=== PATIENT | male | born 1995 | race Caucasian/White ===

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

== ENCOUNTER 2018-11-22 02:21 | Emergency (ER) | payer SELFPAY ==
[~2018-11-22] VITALS: Ht 167.6 cm; Wt 115.7 kg
[2018-11-22 02:41] VITALS: BP 150/73
== END 2018-11-22 05:10 | disposition left against medical advice (07) ==
LOC: ER 02:24
DX: S09.8XXA Other specified injuries of head, initial encounter (principal); Z53.21 Procedure and treatment not carried out due to patient leaving prior to being seen by health care provider; W01.0XXA Fall on same level from slipping, tripping and stumbling without subsequent striking against object, initial encounter; Y93.01 Activity, walking, marching and hiking; Y92.89 Other specified places as the place of occurrence of the external cause; Y99.8 Other external cause status
CPT/HCPCS: 70450

== ENCOUNTER 2019-07-12 16:37 | Emergency (ER) | payer SELFPAY ==
[~2019-07-12] VITALS: Ht 167.6 cm; Wt 106.6 kg
[2019-07-12 17:22] VITALS: BP 134/55
== END 2019-07-12 18:18 | disposition home or self-care (01) ==
LOC: ER 16:37
DX: L05.91 Pilonidal cyst without abscess (principal); J45.909 Unspecified asthma, uncomplicated

== ENCOUNTER 2022-12-26 11:37 | Emergency (ER) | payer SELFPAY ==
[~2022-12-26] VITALS: Ht 165.1 cm; Wt 95.9 kg
[~2022-12-26 11:37] MED LIST changes: -LEVO500T21 PO; +LEVO500T31 PO
[2022-12-26 12:41] VITALS: BP 123/84; PULSE 94; RESP 18; TEMP 97.7; O2SAT 99
== END 2022-12-26 13:22 | disposition left against medical advice (07) ==
LOC: ER 11:37
DX: J02.9 Acute pharyngitis, unspecified (principal); R09.89 Other specified symptoms and signs involving the circulatory and respiratory systems; Z53.21 Procedure and treatment not carried out due to patient leaving prior to being seen by health care provider